=== PATIENT | female | born 1985 | race Caucasian/White ===

== ENCOUNTER → 2019-12-08 11:18 | Outpatient (BNVA) | payer OTHER, SELFPAY | PROVIDERS: Family Provider Registered Nurse; PCP Registered Nurse; Visit Provider Registered Nurse | DX: R63.4 Abnormal weight loss (principal) | CPT/HCPCS: 84443; 85025 ==

== ENCOUNTER → 2019-12-09 14:57 | Outpatient (BNVA) | payer OTHER, SELFPAY | PROVIDERS: Family Provider Registered Nurse; PCP Registered Nurse; Visit Provider Registered Nurse | DX: R63.4 Abnormal weight loss (principal) | CPT/HCPCS: 84439; 84481 ==

== ENCOUNTER 2020-08-25 10:06 | Outpatient (CLI) | payer OTHER, SELFPAY ==
--- NOTE | 2020-08-25 10:15 | US_ITS ---
WS: [id number] ULTRASOUND ABDOMEN LIMITED CLINICAL INFORMATION: K29.60 - Other gastritis without bleeding COMPARISON: None. FINDINGS: Liver Size: Normal. Craniocaudal length: 12.9 cm. Echogenicity: Normal. Surface nodularity: None. Mass (size and location): None. Bile ducts Intrahepatic ducts: Normal. Common bile duct diameter: 0.5 cm. Gallbladder Gallbladder polyp measuring 4 mm Gallstones: None. Gallbladder sludge: None. Gallbladder wall thickening: None. Pericholecystic fluid: None. Sonographic Camejo sign: Absent. Pancreas Normal as visualized Right kidney: Normal. Hydronephrosis: None. Size: 10.2 cm x 5.2 cm x 4.3 cm. Abdominal aorta and IVC Visualized portions are normal. Ascites: None. US/US gall bladder [id number] IMPRESSION: 1. Normal liver and gallbladder. 2. Normal common bile duct. No cholelithiasis. Tiny gallbladder polyp measurin g 4 mm. 3. No hydronephrosis in right kidney.
== END 2020-08-25 10:07 | disposition home or self-care (01) ==
LOC: RAD 10:12
PROVIDERS: PCP Registered Nurse; Visit Provider Registered Nurse
DX: K29.60 Other gastritis without bleeding (principal)
CPT/HCPCS: 76705

== ENCOUNTER 2020-09-15 09:42 | Outpatient (CLI) | payer OTHER, SELFPAY ==
--- NOTE | 2020-09-15 10:00 | NM_ITS ---
WS: [id number] NUCLEAR MEDICINE HIDA SCAN WITH GALLBLADDER EJECTION FRACTION HISTORY: R11.2 - Nausea with vomiting, unspecified COMPARISON: Gallbladder ultrasound 08/25/2020 TECHNIQUE: The patient was intravenously injected with 8.1 mCi of TC99m Mebrofenin. Immediate imaging over the right upper quadrant was followed by 5 minute image and additional images for a total of 60 minutes. Normal uptake of radiotracer throughout the liver. Activity identified in the gallbladder at 10 minutes and well distended by 60 minutes. Activity in the proximal small bowel was seen by 50 minutes. Good washout of the radiotracer from the liver by 60 minutes. The patient then drank 8 ounces of Ensure Plus. Ejection fraction at 60 minutes was 80%. Normal GB ej ection fraction is 35-75%. Post fatty meal symptoms: None. NM/NM hepatobiliary w phar* [id number] IMPRESSION: 1. Normal HIDA scan. 2. Normal gallbladder ejection fraction.
== END 2020-09-15 09:43 | disposition home or self-care (01) ==
LOC: RAD 09:46
PROVIDERS: PCP Registered Nurse; Visit Provider Surgery
DX: R11.2 Nausea with vomiting, unspecified (principal)
CPT/HCPCS: 78227; A9537

== ENCOUNTER → 2021-02-28 12:44 | Outpatient (BNVA) | payer OTHER, SELFPAY | PROVIDERS: PCP Registered Nurse; Visit Provider Nurse Practitioner | DX: M79.672 Pain in left foot (principal) | CPT/HCPCS: 73630 ==

== ENCOUNTER → 2021-03-08 14:38 | Outpatient (BNVA) | payer OTHER, SELFPAY | PROVIDERS: PCP Registered Nurse; Visit Provider Obstetrics & Gynecology | DX: N94.6 Dysmenorrhea, unspecified (principal) | CPT/HCPCS: 76830 ==

== ENCOUNTER → 2021-05-16 15:54 | Outpatient (BNVA) | payer OTHER, SELFPAY | PROVIDERS: PCP Registered Nurse; Visit Provider Obstetrics & Gynecology | DX: N83.9 Noninflammatory disorder of ovary, fallopian tube and broad ligament, unspecified (principal); N85.4 Malposition of uterus | CPT/HCPCS: 76830 ==

== ENCOUNTER → 2021-05-18 08:50 | Outpatient (BNVA) | payer OTHER, SELFPAY | PROVIDERS: PCP Registered Nurse; Visit Provider Obstetrics & Gynecology | DX: Z20.822 Contact with and (suspected) exposure to COVID-19 (principal); N93.8 Other specified abnormal uterine and vaginal bleeding | CPT/HCPCS: 87635 ==

== ENCOUNTER 2021-06-21 15:08 | Observation (INO) | payer OTHER, SELFPAY ==
[2021-06-20 09:42] VITALS: BMI 20.4
[2021-06-20 10:28] LABS: OR HCG Qualitative Urine Negative (Negative)
[2021-06-20 10:52] LABS: Basophils # 0.1 10^3/uL (0.0-0.1); Basophils % 1.1 %; Eosinophils # 0.2 10^3/uL (0.0-0.8); Eosinophils % 2.7 %; Hematocrit 39.9 % (37.0-47.0); Hemoglobin 13.3 g/dL (11.5-15.3); Lymphocytes # 1.8 10^3/uL (0.8-4.8); Mean Corpuscular HGB Conc 33.3 g/dL (30.0-36.0); Mean Corpuscular Hemoglobin 30.4 pg (28.0-34.0); Mean Corpuscular Volume 91.3 fl (81-99); Mean Platelet Volume 11.3 fL (7.4-10.4); Monocytes # 0.6 10^3/uL (0.2-0.9); Monocytes % 11.4 %; Neutrophils # 2.84 10^3/uL (1.8-7.7); Neutrophils % 51.6 %; Nucleated Red Blood Cells % 0 %; Platelet Count 258 10^3/cmm (130-400); Red Blood Count 4.37 10^6/uL (4.1-5.3); Red Cell Distribution Width 12.3 % (12.1-15.1); White Blood Count 5.5 10^3/uL (4.0-10.0)
[2021-06-20 11:05] LABS: Add Urine Microscopic? YES; Bilirubin Urine Neg (Negative); Blood Urine Neg (Negative); Glucose Urine UA Norm (Normal); Ketones Urine Negative (Negative); Leukocyte Esterase Urine Trace (Negative); Nitrate Urine Negative (Negative); Protein Urine Neg (Negative); Specific Gravity, Urine 1.025 (1.005-1.030); Urine Appearance Hazy (CLEAR); Urine Color Yellow (Yellow); Urobilinogen Urine Neg (Negative); pH Urine 5 (5-7)
[2021-06-20 11:06] LABS: Add Urine Culture? No; Bacteria Urine 1+ /hpf; Mucus Urine 2+ /hpf; RBC Urine 0-4 /hpf (0-2)
[2021-06-20 11:20] LABS: Alanine Aminotransferase 8 U/L (0-33); Albumin Level 5.1 g/dL (3.5-5.2); Alkaline Phosphatase 58 IU/L (35-105); Anion Gap 13.8 (5-19); Aspartate Amino Transferase 14 U/L (0-32); Blood Urea Nitrogen 14 mg/dL (6-20); Carbon Dioxide 27 mmol/L (22-29); Chloride 104 mmol/L (98-107); Globulin 2.3 g/dL (1.3-4.6); Glomerular Filtration Rate 141.2 mL/min (90-130); Glucose 76 mg/dL (65-115); Osmolality Calculated 291 mOsm/kg (285-295); Potassium 3.8 mmol/L (3.5-5.1); Sodium 141 mmol/L (136-145); Total Bilirubin 0.6 mg/dL (0.15-1.2); Total Protein 7.4 g/dL (6.6-8.7)
--- NOTE | 2021-06-20 14:31 | ANES.PREANE2 ---
Pre-Anesthetic Assessment Height/Weight: Height 1.63 m Weight 53.977 kg Preop Diagnosis: Abnormal uterine bleeding, pelvic pain, dyspareunia Operation Date: 06/21/21 12:30 Proposed Procedures p Total Vaginal Hysterectomy/dysfuntional uterine N93.18(Not Applicable) - Juan M Ness MD Familial anesthetic complications: None Was Beta Becky taken within 24 hours: N/A Was Clonidine taken within 24 hours: N/A Exam alert, oriented x 3, clear to auscultation bilaterally and regular rate & rhythm Airway Submandibular: within normal limits Cervical ROM: within normal limits Mallampati: Class I Dentition: full History/ROS No significant complaints Pulmonary None reported CV/HEM None reported METS > 4 None reported Hepatic None reported GI None reported Nausea and vomiting history Metabolic None reported Musc/skel None reported Neuropsych Anxiety Anesthetic Plan ASA status: 2 Anesthesia: Anesthesia Evaluation and General Other: We discussed risk and benefits of general anesthesia including PONV, sore throat (sometimes severe), corneal abrasion, positioning and peripheral nerve injuries, life threatening allergic reaction, post operative ICU admission requiring prolonged intubation, stroke, heart attack, , and rare incidences of recall. Patient consents to proceed with general anesthesia. Risk of > 500 ml blood loss (7ml/kg in children): No Medications/Allergies Home Medications Medication Instructions Recorded Confirmed Last Taken Type ketorolac 10 mg tablet 10 mg PO TID PRN 5 Days #15 tab 02/01/21 06/20/21 Unknown Rx alprazolam 0.5 mg tablet (Xanax) 0.5 mg PO BID PRN 60 Days #120 tab 02/20/21 06/20/21 Unknown Rx hydroxyzine HCl 25 mg tablet 25 mg PO BID PRN #45 tab 02/20/21 06/20/21 Unknown Rx promethazine 12.5 mg tablet 12.5 - 25 mg PO BID PRN 5 Days #20 05/16/21 06/20/21 Unknown Rx tab escitalopram oxalate 10 mg tablet See Rx Instructions .ROUTE 06/18/21 06/20/21 Unknown Rx .COMPLEX #90 tab Allergies Allergy/AdvReac Type Severity Reaction Status Date / Time No Known Allergies Allergy Verified 06/20/21 09:38 [facility] Anesthesia Medical History Anxiety Dysfunctional uterine bleeding H/O forearm fracture are reset at age 56 years old Hx LEEP (loop electrosurgical excision procedure), cervix, TMJ (temporomandibular joint disorder) Surgical History (Updated 03/30/21 @ 10:39 by Juan M Ness MD) H/O prior ablation treatment Urinary Family History (Updated 03/02/21 @ 08:51 by Lisa Arias, RN) Mother Breast cancer, Onset Age: 53 Grandmother Lung cancer maternal Grandfather Throat cancer maternal Family/Other Brain cancer maternal uncle Denies family history of Colon cancer Ovarian cancer Diabetes Clotting disorder Heart disease Hyperlipidemia Anesthesia complication Bleeding disorder Hypertension Uterine cancer Thyroid condition Stroke Social History (Updated 06/18/21 @ 08:18 by Lisa Arias, RN) Smoking and tobacco status: never smoked Alcohol intake: current Alcohol intake frequency: holidays/special occasions only Alcohol type: hard liquor Female Reproductive History Date of last menstrual period: 06/09/21 Data Anesthesia : 06/20/21 10:10 06/20/21 10:10 Short CBC 06/20/21 Range/Units 10:10 WBC 5.5 (4.0-10.0) 10^3/uL Hgb 13.3 (11.5-15.3) g/dL Hct 39.9 (37.0-47.0) % MCV 91.3 (81-99) fl Plt Count 258 (130-400) 10^3/cmm Neut % (Auto) 51.6 % Neut # (Auto) 2.84 (1.8-7.7) 10^3/uL BMP 06/20/21 10:10 Sodium 141 Potassium 3.8 Chloride 104 Carbon Dioxide 27 BUN 14 Creatinine 0.5 Glucose 76 Calcium 10.0 Liver Function 06/20/21 Range/Units 10:10 Total Bilirubin 0.6 (0.15-1.2) mg/dL AST 14 (0-32) U/L ALT 8 (0-33) U/L Alkaline Phosphatase 58 (35-105) IU/L Albumin 5.1 (3.5-5.2) g/dL Urine 06/20/21 Range/Units 10:10 Urine Color Yellow (Yellow) Urine Appearance Hazy A (CLEAR) Urine pH 5 (5-7) Ur Specific [place] 1.025 (1.005-1.030) Urine Protein Neg (Negative) Urine Glucose (UA) Norm (Normal) Urine Ketones Negative (Negative) Urine Nitrate Negative (Negative) Urine Bilirubin Neg (Negative) Ur Leukocyte Esterase Trace H (Negative) Urine RBC 0-4 H (0-2) /hpf Urine WBC 5-10 H (0-5) /hpf Blood Bank 06/20/21 10:10 Blood Type A Positive Rho(D) Type Positive Antibody Screen Negative Cardiac Studies: No Data to Display
[2021-06-21] VITALS (17 sets, daily range): BP systolic 85–118; BP diastolic 50–73; PULSE 70–97; RESP 16–20; TEMP 36.2–36.6; O2SAT 97–100; BMI 20.4
[2021-06-21] MEDS: scopolamine 1.5 Patch 1 PATCH TRANSDERMA (10:51)
[2021-06-21] MEDS: sodium chloride 0.9% 500 ML IV (10:51)
--- NOTE | 2021-06-21 11:35 | P.ANESASSM_ITS ---
Pre-Anesthetic Assessment Height/Weight: Height 1.63 m Weight 53.977 kg Temp Pulse Resp BP Pulse Ox 97.5 F L 95 18 104/66 97 06/21/21 10:36 06/21/21 10:36 06/21/21 10:36 06/21/21 10:36 06/21/21 10:36 Preop Diagnosis: Abnormal uterine bleeding, pelvic pain, dyspareunia Operation Date: 06/21/21 12:00 Proposed Procedures p Total Vaginal Hysterectomy/dysfuntional uterine N93.18(Not Applicable) - Juan M Ness MD Familial anesthetic complications: None Was Beta Becky taken within 24 hours: N/A Was Clonidine taken within 24 hours: N/A Last intake: Intake Last Liquid Date 06/20/21 Last Liquid Time 18:00 Last Solid Date 06/20/21 Last Solid Time 18:00 Social No alcohol and No tobacco Exam alert, oriented x 3, clear to auscultation bilaterally and regular rate & rhythm Airway Submandibular: within normal limits Cervical ROM: within normal limits Mallampati: Class II Comments: Comments: TMJ GI Gastroesophageal Reflux Disease Anesthetic Plan ASA status: 2 Anesthesia: General Risk of > 500 ml blood loss (7ml/kg in children): No Medications/Allergies Home Medications Medication Instructions Recorded Confirmed Last Taken Type ketorolac 10 mg tablet 10 mg PO TID PRN 5 Days #15 tab 02/01/21 06/21/21 05/16/21 Rx alprazolam 0.5 mg tablet (Xanax) 0.5 mg PO BID PRN 60 Days #120 tab 02/20/21 06/21/21 06/21/21 07:30 Rx hydroxyzine HCl 25 mg tablet 25 mg PO BID PRN #45 tab 02/20/21 06/21/21 06/05/21 Rx promethazine 12.5 mg tablet 12.5 - 25 mg PO BID PRN 5 Days #20 05/16/21 06/21/21 06/21/21 07:00 Rx tab escitalopram oxalate 10 mg tablet See Rx Instructions .ROUTE 06/18/21 06/21/21 06/21/21 07:00 Rx .COMPLEX #90 tab Allergies Allergy/AdvReac Type Severity Reaction Status Date / Time No Known Allergies Allergy Verified 06/21/21 10:33 [facility] Anesthesia Medical History Anxiety Dysfunctional uterine bleeding H/O forearm fracture are reset at age 56 years old Hx LEEP (loop electrosurgical excision procedure), cervix, TMJ (temporomandibular joint disorder) Surgical History (Updated 03/30/21 @ 10:39 by Juan M Ness MD) H/O prior ablation treatment Urinary Family History (Updated 03/02/21 @ 08:51 by Lisa Arias, RN) Mother Breast cancer, Onset Age: 53 Grandmother Lung cancer maternal Grandfather Throat cancer maternal Family/Other Brain cancer maternal uncle Denies family history of Colon cancer Ovarian cancer Diabetes Clotting disorder Heart disease Hyperlipidemia Anesthesia complication Bleeding disorder Hypertension Uterine cancer Thyroid condition Stroke Social History (Updated 06/18/21 @ 08:18 by Lisa Arias RN) Smoking and tobacco status: never smoked Alcohol intake: current Alcohol intake frequency: holidays/special occasions only Alcohol type: hard liquor Female Reproductive History Date of last menstrual period: 06/09/21 Data Anesthesia : 06/20/21 10:10 06/20/21 10:10 Short CBC 06/20/21 Range/Units 10:10 WBC 5.5 (4.0-10.0) 10^3/uL Hgb 13.3 (11.5-15.3) g/dL Hct 39.9 (37.0-47.0) % MCV 91.3 (81-99) fl Plt Count 258 (130-400) 10^3/cmm Neut % (Auto) 51.6 % Neut # (Auto) 2.84 (1.8-7.7) 10^3/uL BMP 06/20/21 10:10 Sodium 141 Potassium 3.8 Chloride 104 Carbon Dioxide 27 BUN 14 Creatinine 0.5 Glucose 76 Calcium 10.0 Liver Function 06/20/21 Range/Units 10:10 Total Bilirubin 0.6 (0.15-1.2) mg/dL AST 14 (0-32) U/L ALT 8 (0-33) U/L Alkaline Phosphatase 58 (35-105) IU/L Albumin 5.1 (3.5-5.2) g/dL Urine 06/20/21 Range/Units 10:10 Urine Color Yellow (Yellow) Urine Appearance Hazy A (CLEAR) Urine pH 5 (5-7) Ur Specific [place] 1.025 (1.005-1.030) Urine Protein Neg (Negative) Urine Glucose (UA) Norm (Normal) Urine Ketones Negative (Negative) Urine Nitrate Negative (Negative) Urine Bilirubin Neg (Negative) Ur Leukocyte Esterase Trace H (Negative) Urine RBC 0-4 H (0-2) /hpf Urine WBC 5-10 H (0-5) /hpf Blood Bank 06/20/21 10:10 Blood Type A Positive Rho(D) Type Positive Antibody Screen Negative Cardiac Studies: No Data to Display
[2021-06-21] MEDS: sodium chloride 0.9% 1,000 ML 30 ML IV (12:03)
--- NOTE | 2021-06-21 12:54 | W.PM.OPSUD ---
Surgery/Procedure H&P Update DATE OF PROCEDURE: June 21, 2021 DATE H&P PERFORMED: 06/18/21 H&P UPDATE INFORMATION: I have reviewed H&P completed within last 30 days and Changes to prior documentation as noted here PREOP DIAGNOSIS: Abnormal uterine bleeding, pelvic pain, dyspareunia PLANNED PROCEDURE: Operation Date: 06/21/21 12:00 Proposed Procedures p Total Vaginal Hysterectomy/dysfuntional uterine N93.18(Not Applicable) - Juan M Ness MD
[2021-06-21] MEDS: ceFOXitin 2,000 MG in sodium chloride 0.9% (plus) 50 ML 100 MG IV (12:58)
--- NOTE | 2021-06-21 14:13 | P.OP_ITS ---
Operative Report Date of procedure: June 21, 2021 Pre-op diagnosis: Preop Diagnosis Abnormal uterine bleeding, pelvic pain, dyspareunia Post-op diagnosis: Same Procedure done: Total vaginal hysterectomy Specimens removed/disposition: Uterus Surgeon: Juan M Ness MD Estimated blood loss (mL): 75 IV fluids (mL): 1,000 Urine output (mL): 100 Complications: None Procedure: After informed consent and risks, benefits, indications and alternatives reviewed with the patient was taken to the operating room. The patient was placed in dorsal lithotomy position prepped, and draped in the usual sterile fashion. The pre-procedure timeout verifying the correct patient, procedure, site and side, could not requirements was performed and acknowledge by the OR team. A Ontiveros catheter was placed. A Bookwalter vaginal retractor was placed into the vagina in usual manner visualize the cervix. Cervix was grasped with a single tooth tenaculum and circumferentially infiltrated with 2% Xylocaine with epinephrine. Then cervix was circumferentially incised with bovie and the bladder was dissected off the pubovesical cervical fascia anteriorly with a sponge stick and Metzenbaum scissors. The anterior peritoneal reflection was identified and the anterior cul-de-sac was entered sharply with Metzenbaum scissors. The same procedure was performed posteriorly and a posterior colpotomy was made through the posterior cul-de-sac space without difficulty and the posterior blade of the Bookwalter vaginal retractor was advanced posteriorly into the cul-de-sac. At this time, the left and right uterosacral ligaments were isolated and ligated with 0 Vicryl. The Enseal device was placed over the uterosacral ligaments on either side and was then used in a serial fashion up through the cardinal ligaments bilaterally cross-clamped, cut, and sealed with the Enseal device. Finally, the uterine arteries were cross-clamped, cut, sealed and ligated with the Enseal device. Hemostasis was assured. The broad ligaments were then serially clamped, sealed and cut with the Enseal device on both sides. Excellent hemostasis was visualized. Both cornua were clamped, sealed and cut with the Enseal device. Then the pedicles were then suture ligated with excellent hemostasis. The uterus was excised and submitted for pathologic evaluation. No other abnormalities were noted in the pelvic cavity. Good hemostasis was assure on both sides. The patient was given indigo carmine IV. The peritoneum was then closed in a pursestring fashion with 0 Vicryl suture. The vaginal cuff angles were closed with [id number] #0 Vicryl suture on both sides and transfixed with the ipsilateral cardinal and uterosacral ligam ents. The remainder of the vaginal cuff was closed with #0 Vicryl in a running locked fashion. At this time, instruments were removed from the vagina at hemostasis assured. Ontiveros catheter was then placed yielding clear blue/green urine. The patient tolerated the procedure well and was taken to the PACU recovery room in a stable condition. Sponge, lap, needle and instruments counts were correct x3.
[2021-06-21] MEDS: HYDROmorphone 1 mg/mL INJ 1 mL 0.5 MG IVP (14:44)
--- NOTE | 2021-06-21 15:48 | ANE.PACU2 ---
Inpatient post-anesthesia follow up: Airway intact: Yes Vital signs: Temperature 97.1 F Pulse Rate 82 Respiratory Rate 18 Blood Pressure 105/72 Pulse Oximetry 100 Oxygen Delivery Me thod Room Air Oxygen Flow Rate 6 Fraction of Inspir ed Oxygen Hydration adequate: Yes Nausea and vomiting: No Pain level: 2 Mental status: Baseline
[2021-06-21] MEDS: HYDROcodone-acetaminophen 5-325 mg Tablet PO (18:51)
[2021-06-21] MEDS: docusate sodium 100 mg Capsule PO (18:51)
[2021-06-21] MEDS: ketorolac 30 mg/mL INJ IVP (20:28)
[2021-06-21] MEDS: dextrose 5%-lactated ringers 1,000 ML 125 ML IV (22:43)
[2021-06-22] MEDS: ketorolac 30 mg/mL INJ IVP ×2 (02:07→07:36)
[2021-06-22 04:30] VITALS: BP 100/60; PULSE 77; RESP 15; TEMP 36.6; TEMP 36.7; O2SAT 98
[2021-06-22 05:40] LABS: Hematocrit 35.3 % (37.0-47.0); Hemoglobin 11.5 g/dL (11.5-15.3); Mean Corpuscular HGB Conc 32.6 g/dL (30.0-36.0); Mean Corpuscular Hemoglobin 30.3 pg (28.0-34.0); Mean Corpuscular Volume 93.1 fl (81-99); Mean Platelet Volume 11.3 fL (7.4-10.4); Platelet Count 215 10^3/cmm (130-400); Red Blood Count 3.79 10^6/uL (4.1-5.3); Red Cell Distribution Width 12.5 % (12.1-15.1); White Blood Count 12.1 10^3/uL (4.0-10.0)
[2021-06-22] MEDS: HYDROcodone-acetaminophen 5-325 mg Tablet PO ×2 (07:36→12:23)
[2021-06-22] MEDS: docusate sodium 100 mg Capsule PO (08:26)
[2021-06-22] MEDS: escitalopram 10 mg Tablet PO (08:26)
[2021-06-22 09:21] VITALS: BP 95/60; PULSE 120; RESP 16; TEMP 36.7; O2SAT 98
--- NOTE | 2021-06-22 11:52 | PM.OBGYDC ---
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 Leiva 35-year-old female with a history of history of abnormal uterine bleeding, unresponsive to medical management. Admitted for planned total vaginal hysterectomy. The procedure was performed without complications. Overnight observation uneventful. Tolerating diet well. Ambulating without difficulty. Pain well under control. Physical Exam Narrative: GA: Alert and oriented ?3. HEENT: WNL. Heart: Regular rate and rhythm. Lungs: Clear to auscultation bilaterally. Abdomen: Bowel sounds present, nontender. SIZING SPONGER: Spotting bleeding. Extremities: No edema, no cyanosis, no calves pain. Urinary Catheter Management: Ontiveros: Cath Placed During This Visit: yes, but has since been removed by the nurse Reason for Continuing Indwelling Catheter: Perioperative Use in Selected Surgeries Urinary Catheter Date of Insertion: 06/21/21 Urinary Catheter Time of Insertion: 13:22 Date Urinary Catheter Removed: 06/22/21 Time Urinary Catheter Discontinued: 05:30 History History History 4 Term 4 Miscarriages/Ectopic 0 0 Living Children 4 Discharge Data Studies Completed and Pending Pending at discharge Category Date Time Status Pathology: Surgical [PTH] Routine Pth 06/21/21 14:27 Ordered Laboratory Results WBC 12.1 10^3/uL (4.0-10.0) H 06/22/21 05:17 RBC 3.79 10^6/uL (4.1-5.3) L 06/22/21 05:17 Hgb 11.5 g/dL (11.5-15.3) 06/22/21 05:17 Hct 35.3 % (37.0-47.0) L 06/22/21 05:17 MCV 93.1 fl (81-99) 06/22/21 05:17 MCH 30.3 pg (28.0-34.0) 06/22/21 05:17 MCHC 32.6 g/dL (30.0-36.0) 06/22/21 05:17 RDW 12.5 % (12.1-15.1) 06/22/21 05:17 Plt Count 215 10^3/cmm (130-400) 06/22/21 05:17 MPV 11.3 fL (7.4-10.4) H 06/22/21 05:17 Neut % (Auto) 51.6 % 06/20/21 10:10 Lymph % (Auto) 33.0 % 06/20/21 10:10 [place] % (Auto) 11.4 % 06/20/21 10:10 Eos % (Auto) 2.7 % 06/20/21 10:10 Baso % (Auto) 1.1 % 06/20/21 10:10 Neut # (Auto) 2.84 10^3/uL (1.8-7.7) 06/20/21 10:10 Lymph # (Auto) 1.8 10^3/uL (0.8-4.8) 06/20/21 10:10 [place] # (Auto) 0.6 10^3/uL (0.2-0.9) 06/20/21 10:10 Eos # (Auto) 0.2 10^3/uL (0.0-0.8) 06/20/21 10:10 Baso # (Auto) 0.1 10^3/uL (0.0-0.1) 06/20/21 10:10 Nucleated RBC % (auto) 0 % 06/20/21 10:10 Nucleated RBCs # 0.0 /100WBC 06/20/21 10:10 Sodium 141 mmol/L (136-145) 06/20/21 10:10 Potassium 3.8 mmol/L (3.5-5.1) 06/20/21 10:10 Chloride 104 mmol/L (98-107) 06/20/21 10:10 Carbon Dioxide 27 mmol/L (22-29) 06/20/21 10:10 Anion Gap 13.8 (5-19) 06/20/21 10:10 BUN 14 mg/dL (6-20) 06/20/21 10:10 Creatinine 0.5 mg/dL (0.5-0.9) 06/20/21 10:10 GFR Calculation 141.2 mL/min (90-130) H 06/20/21 10:10 Glucose 76 mg/dL (65-115) 06/20/21 10:10 Calculated Osmolality 291 mOsm/kg (285-295) 06/20/21 10:10 Calcium 10.0 mg/dL (8.5-10.5) 06/20/21 10:10 Total Bilirubin 0.6 mg/dL (0.15-1.2) 06/20/21 10:10 AST 14 U/L (0-32) 06/20/21 10:10 ALT 8 U/L (0-33) 06/20/21 10:10 Alkaline Phosphatase 58 IU/L (35-105) 06/20/21 10:10 Total Protein 7.4 g/dL (6.6-8.7) 06/20/21 10:10 Albumin 5.1 g/dL (3.5-5.2) 06/20/21 10:10 Globulin 2.3 g/dL (1.3-4.6) 06/20/21 10:10 Urine Color Yellow (Yellow) 06/20/21 10:10 Urine Appearance Hazy (CLEAR) A 06/20/21 10:10 Urine pH 5 (5-7) 06/20/21 10:10 Ur Specific [place] 1.025 (1.005-1.030) 06/20/21 10:10 Urine Protein Neg (Negative) 06/20/21 10:10 Urine Glucose (UA) Norm (Normal) 06/20/21 10:10 Urine Ketones Negative (Negative) 06/20/21 10:10 Urine Blood Neg (Negative) 06/20/21 10:10 Urine Nitrate Negative (Negative) 06/20/21 10:10 Urine Bilirubin Neg (Negative) 06/20/21 10:10 Urine Urobilinogen Neg mg/dL (Negative) 06/20/21 10:10 Ur Leukocyte Esterase Trace (Negative) H 06/20/21 10:10 Urine RBC 0-4 /hpf (0-2) H 06/20/21 10:10 Urine WBC 5-10 /hpf (0-5) H 06/20/21 10:10 Ur Squamous Epith Cells 10-15 /hpf (0-5) H 06/20/21 10:10 Amorphous Sediment Not Reportable 06/20/21 10:10 Urine Bacteria 1+ /hpf (NONE) H 06/20/21 10:10 Urine Mucus 2+ /hpf 06/20/21 10:10 Urine HCG, Qual Negative (Negative) 06/20/21 09:37 Blood Type A Positive 06/20/21 10:10 Rho(D) Type Positive 06/20/21 10:10 Antibody Screen Negative 06/20/21 10:10 Vitals Last Vital Signs Temp 98.0 F 06/22/21 09:21 Pulse 120 H 06/22/21 09:21 Resp 16 06/22/21 09:21 BP 95/60 06/22/21 09:21 Pulse Ox 98 06/22/21 09:21 Discharge Plan Discharge Patient Disposition: Home Condition: Stable Prescriptions: New hydrocodone-acetaminophen 5-325 mg tablet 1 tab PO Q4H PRN (Reason: pain) Qty: 30 0RF acetaminophen 325 mg capsule 325 mg PO Q4H PRN (Reason: fever or pain) Qty: 60 0RF ibuprofen 800 mg tablet 800 mg PO TID PRN (Reason: pain) Qty: 60 0RF Continued ketorolac 10 mg tablet 10 mg PO TID PRN (Reason: pain) 5 Days Qty: 15 1RF hydroxyzine HCl 25 mg tablet 25 mg PO BID PRN (Reason: itching) Qty: 45 0RF alprazolam [Xanax] 0.5 mg tablet 0.5 mg PO BID PRN (Reason: anxiety) 60 Days Qty: 120 1RF promethazine 12.5 mg tablet 12.5 - 25 mg PO BID PRN (Reason: nausea and vomiting) 5 Days Qty: 20 0RF escitalopram oxalate 10 mg tablet See Rx Instructions .ROUTE .COMPLEX Qty: 90 0RF Dose Instruction: TAKE 1 TABLET BY MOUTH DAILY Rx Instructions: TAKE 1 TABLET BY MOUTH DAILY Discharge Orders: Discharge Order (Routine); Ordered 06/22/21 Ordered By: Juan M Ness Referrals: Juan M Ness MD [Physician] - 07/03/21 1:30 pm (Your 2 week post-operative appointment is scheduled for 07/03/21 @1:30. Your 6 week post-operative appointment is scheduled for 07/31/21 @1:30. ) Discharge Diet: Usual diet Discharge Activity: Limit activity as instructed Patient Instructions: Vaginal Hysterectomy (DC), OB Discharge Report, OB Food/Drug Interaction Guide, Opioid Safety Activity Restrictions/Additional Instructions: 1. Please call [facility] on next working day to make your post-operative appointment in 2 weeks. 2. Please stay home until you come back to the clinic on first post-operative check up. 3. Please follow instructions on your medications CAREFULLY. 4. If you have abdominal incision, do not cover it unless dressing is necessary because of drainage. OK to shower, but avoid bath. Leave steri-strips until they fall off. If they are still on one week after surgery, you may remove them. 5. If you had vaginal surgery or vaginal repair, Dr. Ness may instruct you to take SITZ bath. 6. Yellow, blood tinged odorous vaginal discharge is usually normal after hysterectomy or vaginal surgeries. 7. No sexual intercourse, tampons, or douches until you are completely released from the post-operative care. 8. Avoid constipation by eating right and maybe using some Metamucil or Milk of Magnesia. 9. All prescription refills are given during the working hours. Please do no wait till it runs out. Call the clinic at [phone] before your medication runs out. The clinic will get in touch with your doctor to prescribe medications if necessary. 10. Please remain within 40 mile radius from our hospital because emergencies do happen now and then during the post-operative period. 11. If you have stairs at home, take one step at a time slowly and minimize the number of trips. It helps to stay in one floor for the next few days. No lifting except what you can lift by one hand until you are released from the post-operative care. 12. Driving is discouraged until you are well healed. It may be 3-4 weeks before you feel strong enough to drive. You should be able to turn and look through the rear window without pain and you should be able to push the brake pedal very hard without pain before you drive. No fast rules, but SAFETY should be your primary concern. DO NOT drive if you are on sedating medications such as narcotics. 13. Call the clinic (during working hours) to make urgent appointment or go to the Emergency room, if any of the following occurs: i. Vaginal bleeding becomes heavy, more than a period. ii. Incision becomes red and sore, or drains pus. iii. Your temperature is over 100.4 or you have chill. iv. IV site becomes red and swollen (a little ``knot?? is usually OK) v. Persistent nausea and vomiting vi. Persistent constipation or diarrhea vii. Rash or allergic reaction to medications. 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
[2021-06-22] MEDS: ibuprofen 800 mg tablet PO (12:23)
[2021-06-22 12:35] VITALS: BP 102/63; PULSE 84; RESP 18; TEMP 36.6; O2SAT 99
[2021-06-22 12:57] VITALS: BP 102/63; PULSE 84; RESP 18; TEMP 36.6; O2SAT 99
== END 2021-06-22 12:45 | disposition home or self-care (01) ==
LOC: OBGYN 15:09
PROVIDERS: Admitting Provider Obstetrics & Gynecology; PCP Registered Nurse; Visit Provider Obstetrics & Gynecology
PROC: (CPT 58260; principal; 2021-06-21 12:00)
DX: N93.9 Abnormal uterine and vaginal bleeding, unspecified (principal); R10.2 Pelvic and perineal pain; N94.10 Unspecified dyspareunia; F41.9 Anxiety disorder, unspecified
CPT/HCPCS: 58260; 36415; 80053; 81001; 81025; 84703; 85025; 85027; 86850; 86900; 88307; G0378; J0694; J1100; J1170; J1885; J2405; J2704; J2710; J3010; J3490; J7030; J7040

== ENCOUNTER 2024-11-24 12:36 | Outpatient (CLI) | payer OTHER, SELFPAY ==
--- NOTE | 2024-11-24 12:47 | XR_ITS ---
WS: [id number] Right hand, 3 views, 11/24/2024 Clinical Data: S69.91XA - Unspecified injury of right wrist, hand and fi... Comparison: None. Findings: No fractures or dislocations are seen. The soft tissues are unremarkable. The joint spaces are normal XR/XR hand RT min 3V* [id number] Impression: Negative right hand.
== END 2024-11-24 12:37 | disposition home or self-care (01) ==
PROVIDERS: PCP Registered Nurse; Visit Provider Registered Nurse
DX: S69.91XA Unspecified injury of right wrist, hand and finger(s), initial encounter (principal); X58.XXXA Exposure to other specified factors, initial encounter
CPT/HCPCS: 73130